=== PATIENT | male | born 1960 | race Caucasian/White ===

== ENCOUNTER → 2017-07-04 | Outpatient (CLI) | END | disposition home or self-care (01) ==

== ENCOUNTER 2017-07-06 07:59 | Day surgery (SDC) | END 2017-07-06 11:39 | disposition home or self-care (01) ==

== ENCOUNTER → 2017-09-26 | Outpatient (CLI) | END | disposition home or self-care (01) ==

== ENCOUNTER → 2018-11-29 | Outpatient (CLI) | payer BC ==
[~2018-11-29] MED LIST: CROM13SP5 NS; ESOM40CA PO
== END | disposition home or self-care (01) ==
LOC: LAB 05:54
PROVIDERS: ATTEND Internal Medicine
DX: R73.03 Prediabetes (principal); E78.5 Hyperlipidemia, unspecified; E55.9 Vitamin D deficiency, unspecified
CPT/HCPCS: 80053; 80061; 82306; 83036; 84153; 84154; 85025